=== PATIENT | female | born 1975 ===

== ENCOUNTER 2021-10-10 05:30 | Day surgery (SDC) | payer OTHER ==
[~2021-10-10 05:30] MED LIST: GLIPIZIDE XL10 MG PO; GLUMETZA1000 MG PO; PROTONIX40 M1 PO
== END 2021-10-10 17:15 | disposition home or self-care (01) ==
LOC: CIR.AMB 05:30
PROVIDERS: ATTEND Obstetrics & Gynecology
DX: N95.0 Postmenopausal bleeding (principal); Z20.822 Contact with and (suspected) exposure to COVID-19

== ENCOUNTER 2021-12-10 11:33 | Emergency (ER) | payer OTHER ==
[~2021-12-10] VITALS: Ht 152.4 cm; Wt 83.0 kg
== END 2021-12-10 14:44 | disposition home or self-care (01) ==
LOC: ER 11:33
DX: N93.8 Other specified abnormal uterine and vaginal bleeding (principal); Z91.013 Allergy to seafood

== ENCOUNTER 2022-04-28 11:45 | Inpatient (IN) | payer OTHER ==
[~2022-04-28] VITALS: Ht 152.4 cm; Wt 83.9 kg
[2022-04-28] MEDS ORDERED: FLONASE16 GM (14:14)
[2022-04-28] MEDS ORDERED: PROAIR HFA8.5 GM IH (14:14)
[2022-04-28] MEDS ORDERED: FUSION PLUS CA1 EACH PO (14:15)
[2022-04-28] MEDS ORDERED: PREVACID30 MG PO (14:15)
[2022-04-28] MEDS ORDERED: FLOVENT HFA12 GM IH (14:15)
[2022-04-30] MEDS ORDERED: FUSION CAPSULE1 EACH (08:04)
== END 2022-05-01 14:41 | disposition home or self-care (01) | DRG 743 ==
LOC: O/R 04-29 05:30 → OB/GYN 04-29 05:30 → SURH 04-29 07:00 → OB/GYN 04-29 14:03
PROVIDERS: ADMIT Obstetrics & Gynecology; ATTEND Obstetrics & Gynecology
PROC: 0UB90ZZ Excision of Uterus, Open Approach (ICD-10-PCS; principal; 2022-04-29 07:00)
DX: N80.0 Endometriosis of uterus (principal); Z20.822 Contact with and (suspected) exposure to COVID-19; N73.6 Female pelvic peritoneal adhesions (postinfective)

== ENCOUNTER 2022-05-07 12:44 | Inpatient (IN) | payer OTHER ==
[~2022-05-07] VITALS: Ht 12.7 cm; Wt 80.7 kg
[~2022-05-07 12:44] MED LIST changes: +FLONASE16 GM; +FLOVENT HFA12 GM IH; +FUSION CAPSULE1 EACH; +FUSION PLUS CA1 EACH PO; +PREVACID30 MG PO; +PROAIR HFA8.5 GM IH
== END 2022-06-06 10:21 | disposition home or self-care (01) | DRG 857 ==
LOC: OB/GYN 12:44
PROVIDERS: ADMIT Obstetrics & Gynecology; ATTEND Obstetrics & Gynecology
PROC: 8E0ZXY6 Isolation (ICD-10-PCS; 2022-05-07)
PROC: BW21Y0Z Computerized Tomography (CT Scan) of Abdomen and Pelvis using Other Contrast, Unenhanced and Enhanced (ICD-10-PCS; 2022-05-23)
PROC: 0JBC0ZZ Excision of Pelvic Region Subcutaneous Tissue and Fascia, Open Approach (ICD-10-PCS; principal; 2022-06-01)
DX: T81.49XA Infection following a procedure, other surgical site, initial encounter (principal); L76.34 Postprocedural seroma of skin and subcutaneous tissue following other procedure; B96.89 Other specified bacterial agents as the cause of diseases classified elsewhere; B95.2 Enterococcus as the cause of diseases classified elsewhere; Z20.822 Contact with and (suspected) exposure to COVID-19
CPT/HCPCS: 72191; 74175